=== PATIENT | male | born 1945 | race Caucasian/White ===

== ENCOUNTER 2020-09-24 15:21 | Emergency (ER) | payer BC, OTHER ==
[~2020-09-24] VITALS: Ht 175.3 cm; Wt 86.2 kg
[~2020-09-24 15:21] MED LIST: DIOVAN; THYROID; norvasc
--- NOTE | 2020-09-24 15:21 | NUR ---
Patient to ER bed 5 to gown for evaluation. Side rails up. Report given to CAROLYN Riggins.
[2020-09-24 15:31] VITALS: BP_SYST 160
--- NOTE | 2020-09-24 15:31 | NUR ---
ER Dr. Mckeon at bedside examining patient.
--- NOTE | 2020-09-24 15:35 | NUR ---
ER at bedside examining patient.
--- NOTE | 2020-09-24 15:38 | NUR ---
Patient came to the ER due to lower back pain. Patient advised that he has chronic arthritis however, the pain has not been relieved by medication like Tyler. Patient is requesting steroids to help relieve pain. MD described the pain to be sharp 10/10. MD is aware. Patient prefers a sitting position to help relieve pressure on his lower back. Patient not presenting any signs of acute distress.
[2020-09-24] MEDS ORDERED: methylPREDNISolone SOD SUCC/PF 62.5 MG/ML VIAL IM ONE (15:45)
[2020-09-24] MEDS ORDERED: HYDROcodone/ACETAMIN 10-325 MG TAB PO ONE (15:45)
[2020-09-24] MEDS ORDERED: KETOROLAC TROMETHAMINE 60 MG/2 ML VIAL IM ONE (15:45)
[2020-09-24 16:58] LABS: BILIRUBIN,URINE NEGATIVE (NEGATIVE); CLARITY/URINE CLEAR (CLEAR); COLOR,URINE YELLOW (YELLOW); GLUCOSE,URINE NEGATIVE (NEGATIVE); KETONES,URINE NEGATIVE (NEGATIVE); LEUKOCYTE ESTERASE ,URINE NEGATIVE (NEGATIVE); NITRITE, URINE NEGATIVE (NEGATIVE); PH,URINE 5.5 (5.0-8.0); PROTEIN URINE NEGATIVE (NEGATIVE); UROBILINOGEN,URINE 0.2 (0.2-1.0)
[2020-09-24] MEDS ORDERED: IBUP-1969 PO (17:04)
[2020-09-24] MEDS ORDERED: PRED10TA PO (17:04)
[2020-09-24 17:08] LABS: BLOOD, URINE TRACE (NEGATIVE)
[2020-09-24 17:10] LABS: BACTERIA,URINE FEW /HPF (None Seen); MUCUS,URINE None Seen /LPF (None Seen); RBC,URINE NONE SEEN /HPF (0-3); WBC,URINE 0-3 /HPF (0-3)
[2020-09-24 17:40] VITALS: BP_SYST 160
--- NOTE | 2020-09-24 17:41 | NUR ---
Patient given written and verbal discharge instructions and verbalizes understanding. ER MD discussed with patient the results and treatment provided. Patient in stable condition. ID arm band removed. Rx of Ibuprofen and Prednisone given. Patient educated on pain management and to follow up with PMD. Pain Scale 5/10. Opportunity for questions provided and answered. Medication side effect fact sheet provided.
== END 2020-09-24 15:38 | disposition home or self-care (01) ==
LOC: SED 15:21
DX: M54.31 Sciatica, right side (principal); I10 Essential (primary) hypertension
CPT/HCPCS: 81000; 96372; 99284; J1885; J2930

== ENCOUNTER 2022-01-12 17:58 | Emergency (ER) | payer BC, OTHER ==
[~2022-01-12] VITALS: Ht 177.8 cm; Wt 92.1 kg
[~2022-01-12 17:58] MED LIST changes: +IBUP-1969 PO; +PRED10TA PO
[2022-01-12 18:03] VITALS: BP_SYST 189
--- NOTE | 2022-01-12 18:12 | NUR ---
Triaged pt and pt placed in waiting room until bed becomes available. Pt c[place] falling at park and landing on his bilateral arms. States bilateral arms are in pain and as well as right leg. Rates pain 10/10 and is constant Abrasion noted on right leg no active bleeding. No deformity noted. Did not hit head and no LOC. Ambulatory with steady gait. A&Ox4. BP elevated at 189/110, other vitals stable. NKA. Has hx of Cardiac disorders and HTN.
--- NOTE | 2022-01-12 20:37 | NUR ---
Patient to ER bed H1 to gown for evaluation. Side rails up.
--- NOTE | 2022-01-12 20:39 | NUR ---
Dr Montes evaluating patient at bedside
[2022-01-12] MEDS ORDERED: predniSONE 20 MG TABLET PO ONE (21:00)
[2022-01-12] MEDS ORDERED: methocarbamoL 500 MG TABLET PO ONE (21:00)
[2022-01-12] MEDS ORDERED: KETOROLAC TROMETHAMINE 30 MG VIAL IM ONE (21:00)
[2022-01-12] MEDS ORDERED: BACITRACIN 1 GM OINT TP ONE (21:09)
[2022-01-12] MEDS ORDERED: CYCL10TA24 PO (21:11)
[2022-01-12] MEDS ORDERED: PRED20TA PO (21:11)
[2022-01-12] MEDS ORDERED: IBUP-1969 PO (21:11)
[2022-01-12 21:21] VITALS: BP_SYST 165
--- NOTE | 2022-01-12 21:23 | NUR ---
Patient given written and verbal discharge instructions and verbalizes understanding. ER MD discussed with patient the results and treatment provided. Patient in stable condition. ID arm band removed. Rx of Flexeril, Ibuprofen and Prednisone given. Patient educated on pain management and to follow up with PMD. Pain Scale 3/10 . Opportunity for questions provided and answered. Medication side effect fact sheet provided.
== END 2022-01-12 21:21 | disposition home or self-care (01) ==
LOC: SED 17:58
DX: S46.012A Strain of muscle(s) and tendon(s) of the rotator cuff of left shoulder, initial encounter (principal); I10 Essential (primary) hypertension; W01.0XXA Fall on same level from slipping, tripping and stumbling without subsequent striking against object, initial encounter; Y93.64 Activity, baseball; Y92.89 Other specified places as the place of occurrence of the external cause; Y99.8 Other external cause status
CPT/HCPCS: 73030; 96372; 99283; J1885; J7512